=== PATIENT | female | born 1940 | race Caucasian/White ===

== ENCOUNTER → 2018-10-13 | Outpatient (CLI) | payer MEDICARE, OTHER ==
--- NOTE | 2018-10-13 11:25 | NM ---
EXAMINATION TYPE: NM stress lexiscan cardiolite DATE OF EXAM: 10/13/2018 COMPARISON: NONE HISTORY: TECHNIQUE: After the intravenous administration of 10 mCi Tc 99m Sestamibi - Cardiolite resting SPEC T images acquired 60 minutes post injection. The patient received 0.4mg Lexiscan, 25.4 mCi Tc 99m Sestamibi - Stress images obtained [address] injection FINDINGS: Review of stress and rest SPECT images demonstrates no distinct perfusion abnormality. Gated analysi s shows normal wall motion with an estimated left ventricular ejection fraction of 58 %. IMPRESSION: No scintigraphic evidence for reversible ischemia.
--- NOTE | 2018-10-13 12:48 | EST ---
EXERCISE STRESS DATE OF SERVICE: 10/13/2018 AGE: 78 SEX: Female HT: 5'7" WT: 230 PROTOCOL: Lexiscan Cardiolite STAGE: DURATION OF EXERCISE: HEART RATE REST: 63 BLOOD PRESSURE REST: 137/67 MAXIMUM HEART RATE ACHIEVED: 75 MAXIMUM BLOOD PRESSURE: 145/70 85% MPHR: 100% MPHR: METS: INDICATIONS: Chest pain. CLINICAL INFORMATION: Lexiscan Cardiolite study was performed. Patient was given Lexiscan injection over a period of 15 seconds. The peak heart rate of 75 was achieved. Maximum blood pressure of 145/70 mmHg was noted. Resting EKG shows normal sinus rhythm with normal VA interval and QRS duration and normal ST-T waves. No ST-segment depression suggestive of ischemia is noted. Occasional PVCs are noted. The results of the nuclear study will follow. STEFFANIE / RAHULN: [id number] /
== END | disposition home or self-care (01) ==
LOC: RADNMMAIN 07:52
PROVIDERS: ATTEND Family Medicine
DX: I10 Essential (primary) hypertension (principal); R00.1 Bradycardia, unspecified
CPT/HCPCS: 93017; 78452; A9500

== ENCOUNTER → 2020-03-29 | Outpatient (CLI) | payer MEDICARE ==
--- NOTE | 2020-03-29 17:00 | US ---
EXAMINATION TYPE: US venous doppler duplex LE BI DATE OF EXAM: 03/29/2020 4:11 PM COMPARISON: Left lower extremity venous ultrasound April 29, 2015 and right lower extremity venous u ltrasound February 10, 2015. CLINICAL HISTORY: I80.9 Phlebitis and thrombophlebitis of unspecified. Bilateral leg pain SIDE PERFORMED: Bilateral TECHNIQUE: The lower extremity deep venous system is examined utilizing real time linear array sonog justino with graded compression, doppler sonography and color-flow sonography. VESSELS IMAGED: External Iliac Vein (EIV) Common Femoral Vein Deep Femoral Vein Greater Saphenous Vein * Femoral Vein Popliteal Vein Small Saphenous Vein * Proximal Calf Veins (* superficial vessels) Right Leg: Negative for DVT Left Leg: Negative for DVT Results called to Shanna at Dr's office at time of exam Grayscale, color doppler, spectral doppler imaging performed of the deep veins of the bilateral lower extremities. There is normal flow, compressibility, vascular waveforms. IMPRESSION: No ultrasound evidence for acute DVT in either lower extremity.
== END | disposition home or self-care (01) ==
LOC: RADUSWWP 15:46
PROVIDERS: ATTEND Orthopaedic Surgery
DX: M25.561 Pain in right knee (principal); M17.0 Bilateral primary osteoarthritis of knee; I80.9 Phlebitis and thrombophlebitis of unspecified site
CPT/HCPCS: 93970

== ENCOUNTER 2021-11-17 05:31 | Observation (INO) | payer MEDICARE ==
[2021-11-17] MEDS ORDERED: NALOXONE 0.4 MG/ML 1 ML VIAL IV PRN ×2 (06:19→11:26)
[2021-11-17] MEDS: SODIUM CHLORIDE 0.9% 1,000 ML IV SCH (06:33)
[2021-11-17] MEDS: ACETAMINOPHEN TAB 325 MG TAB PO PRN ×2 (06:33→16:34)
[2021-11-17] MEDS ORDERED: VANCOMYCIN IV PER PHARMACY 1 EACH MISC MISCELLANE PRN ×2 (06:35→11:36)
--- NOTE | 2021-11-17 06:39 | ED ---
General Adult HPI - General Chief complaint: Fever Stated complaint: Abnormal Labs Time Seen by Provider: 11/17/21 06:10 Source: EMS Mode of arrival: EMS Limitations: no limitations - History of Present Illness Initial comments: This patient is an 81-year-old woman who is transferred here to have further evaluation and treatment of fever, generalized weakness, inability to walk. Patient states that she was in usual state of health until 10 AM yesterday. Around that time she started feeling generalized weakness and she was having some diffuse body aches. She then noticed she was having shaking chills. Patient resisted going to be seen for number hours and then went to [facility] in the early evening. Patient was seen there and had workup, without finding a definite source of infection and she was transferred here for further evaluation. -: hour(s) Consistency: constant Improves with: none Worsens with: none Associated Symptoms: headaches, malaise, weakness Treatments Prior to Arrival: other (Rocephin) - Related Data Home Medications Medication Instructions Recorded Confirmed Aspirin 81 mg PO DAILY 01/17/15 04/25/15 Atorvastatin [Lipitor] 10 mg PO HS 01/17/15 04/25/15 Lisinopril [Prinivil] 10 mg PO DAILY 01/17/15 04/25/15 metFORMIN HCL [Glucophage] 500 mg PO QAM 01/17/15 04/25/15 Acetaminophen Tab [Tylenol Tab] 500 mg PO Q6H PRN 04/19/15 04/25/15 Warfarin [Coumadin] 5 mg PO ONCE 04/25/15 04/25/15 Previous Rx's Medication Instructions Recorded HYDROcodone/APAP 5-325MG [[place] 1 - 2 each PO Q6HR PRN #90 tab 04/29/15 5-325] Warfarin [Coumadin] 2.5 mg PO DAILY #1 tab 04/29/15 Allergies Allergy/AdvReac Type Severity Reaction Status Date / Time No Known Allergies Allergy Verified 04/19/15 11:33 Review of Systems ROS Statement: Those systems with pertinent positive or pertinent negative responses have been documented in the HPI. ROS Other: All systems not noted in ROS Statement are negative. Constitutional: Reports: fever, chills, weakness ENT: Denies: ear pain Respiratory: Denies: cough, dyspnea Cardiovascular: Reports: edema. Denies: chest pain, palpitations, orthopnea, syncope Gastrointestinal: Denies: abdominal pain, vomiting, diarrhea Genitourinary: Denies: dysuria, hematuria Musculoskeletal: Reports: myalgia. Denies: back pain Skin: Denies: rash Neurological: Reports: headache. Denies: weakness, numbness Past Medical History Past Medical History: Diabetes Mellitus, GERD/Reflux, Hyperlipidemia, Hypertension, Osteoarthritis (OA) Additional Past Medical History / Comment(s): gallstones, urinary leakage, occ uses cane, edema left lower leg History of Any Multi-Drug Resistant Organisms: None Reported Past Surgical History: Section, Tubal Ligation Additional Past Surgical History / Comment(s): rt hip replacement 01/26/15 Past Anesthesia/Blood Transfusion Reactions: No Reported Reaction Past Psychological History: Anxiety Past Alcohol Use History: Rare Past Drug Use History: None Reported - Past Family History Father Family Medical History: Diabetes Mellitus General Exam General appearance: alert, in no apparent distress Head exam: Present: atraumatic, normocephalic Eye exam: Present: normal appearance. Absent: scleral icterus, conjunctival injection Neck exam: Present: normal inspection, full ROM. Absent: meningismus Respiratory exam: Present: normal lung sounds bilaterally. Absent: respiratory distress, wheezes, rales, rhonchi, stridor Cardiovascular Exam: Present: regular rate, normal rhythm, normal heart sounds. Absent: systolic murmur, diastolic murmur, rubs, gallop GI/Abdominal exam: Present: soft. Absent: distended, tenderness, guarding, rebound, rigid, mass Extremities exam: Present: normal inspection, normal capillary refill. Absent: pedal edema, calf tenderness Back exam: Present: normal inspection. Absent: CVA tenderness (R), CVA tenderness (L) Neurological exam: Present: alert, oriented X3. Absent: motor sensory deficit Skin exam: Present: warm, dry, intact, erythema (There is erythema, warmth and edema involving the left lower extremity, to a lesser degree trace of erythema to right lower extremity.) Course Vital Signs 11/17/21 11/17/21 05:38 06:09 Temperature 100.1 F H Pulse Rate 76 73 Respiratory 18 18 Rate Blood Pressure 143/96 153/59 O2 Sat by Pulse 94 L 94 L Oximetry Disposition Clinical Impression: Cellulitis Disposition: ADMITTED IP TO THIS HOSP Condition: Fair Referrals: Asif Aparicio DO [Primary Care Provider] - 1-2 days
[2021-11-17] MEDS ORDERED: VANCOMYCIN 1,750 MG in SODIUM CHLORIDE 0.9% 500 ML 500 ML IVPB ONE (07:15)
[2021-11-17 07:32] LABS: Albumin 3.6 g/dL (3.5-5.0); Calcium 8.8 mg/dL (8.4-10.2); Potassium 4.3 mmol/L (3.5-5.1); Total Protein 6.5 g/dL (6.3-8.2)
[2021-11-17 07:52] LABS: Basophils % (A) 0 %; Eosinophils % (A) 0 %; HCT 37.7 % (34.0-46.0); HGB 12.8 gm/dL (11.4-16.0); Lymphocytes % (A) 9 %; MCHC 33.9 g/dL (31.0-37.0); MCV 94.5 fL (80.0-100.0); Mean Platelet Volume 7.7; Monocytes # (A) 0.2 k/uL (0-1.0); Monocytes % (A) 2 %; Neutrophils # (A) 10.8 k/uL (1.3-7.7); Neutrophils % (A) 88 %; Platelet Count 202 k/uL (150-450); RBC 3.99 m/uL (3.80-5.40); RDW 13.4 % (11.5-15.5); WBC 12.2 k/uL (3.8-10.6)
[2021-11-17] MEDS ORDERED: HEPARIN SODIUM,PORCINE/PF 5,000 UNIT/0.5 ML SYRINGE SQ SCH (09:00)
[2021-11-17] MEDS: FAMOTIDINE 20 MG TAB PO SCH ×2 (09:25→21:22)
[2021-11-17 11:17] LABS: Glucose,Whole Blood 126 mg/dL (75-99)
[2021-11-17] MEDS ORDERED: MELATONIN 3 MG TABLET PO PRN (11:26)
[2021-11-17] MEDS ORDERED: HYDROmorphone 2 MG TAB PO PRN (11:26)
[2021-11-17] MEDS ORDERED: bisacodyL 5 MG TABLET.DR PO PRN (11:26)
[2021-11-17] MEDS ORDERED: ONDANSETRON 4 MG/2 ML VIAL IVP PRN (11:26)
[2021-11-17] MEDS ORDERED: MAGNESIUM HYDROXIDE 2,400 MG/10 ML CUP PO PRN (11:26)
[2021-11-17] MEDS ORDERED: HYDROcodone/APAP 5-325MG 1 EACH TAB PO PRN (11:26)
[2021-11-17] MEDS ORDERED: NON FORMULARY DRUG (Acetaminophen [Tylenol Arthritis] 650 MG Tablet) PO PRN (11:31)
[2021-11-17] MEDS ORDERED: LORATADINE 10 MG TAB PO PRN (11:31)
--- NOTE | 2021-11-17 12:33 | P.HPIM ---
History of Present Illness H&P Date: 11/17/21 Chief Complaint: Left lower extremity pain with inability to ambulate with fever 81-year-old male with past medical history significant for paroxysmal A. fib dyslipidemia hypertension and type 2 diabetes mellitus. Patient transferred here to have further evaluation and treatment of fever, generalized weakness, inability to walk. Patient states that she was in usual state of health until 10 AM yesterday. Around that time she started feeling generalized weakness and she was having some diffuse body aches. She then noticed she was having shaking chills. Patient resisted going to be seen for number hours and then went to [facility] in the early evening. Patient was seen there and had workup, without finding a definite source of infection and she was transferred here for further evaluation. Patient denied any chest pain denies any shortness of breath. She denies any nausea vomiting. Denies any abdominal pain. Denies any change in bowel movement. She denies any focal weakness or paresthesias. Review of Systems All 14 review of systems evaluated and all negative except for above. Past Medical History Past Medical History: Atrial Fibrillation, Diabetes Mellitus, GERD/Reflux, Hyperlipidemia, Hypertension, Osteoarthritis (OA) Additional Past Medical History / Comment(s): NIDDM type II, neuropathy bilateral legs/feet, recent kidney infection tx with antibiotic, UTIs, overactive bladder, arthritis in multiple joints, bilateral leg lymphedema, History of Any Multi-Drug Resistant Organisms: None Reported Past Surgical History: Section, Tubal Ligation Additional Past Surgical History / Comment(s): total L/R hip arthroplasites, bilateral cataract removals/lens implants. Past Anesthesia/Blood Transfusion Reactions: No Reported Reaction Smoking Status: Former smoker - Past Family History Mother Family Medical History: Unable to Obtain Additional Family Medical History / Comment(s): Mother left when pt was 3 yrs old. Father Family Medical History: Diabetes Mellitus Medications and Allergies Home Medications Medication Instructions Recorded Confirmed Type Atorvastatin [Lipitor] 10 mg PO HS 01/17/15 11/17/21 History metFORMIN HCL [Glucophage] 500 mg PO AC-BID 01/17/15 11/17/21 History Acetaminophen [Tylenol Arthritis] 650 mg PO Q8H PRN 11/17/21 11/17/21 History Ascorbic Acid [Vitamin C] 1,000 mg PO DAILY 11/17/21 11/17/21 History Cholecalciferol [Vitamin D3 (25 25 mcg PO DAILY 11/17/21 11/17/21 History Mcg = 1000 Iu)] FLUoxetine HCL [PROzac] 20 mg PO DAILY 11/17/21 11/17/21 History Loratadine [Claritin] 10 mg PO DAILY PRN 11/17/21 11/17/21 History Metoprolol Tartrate [Lopressor] 75 mg PO BID 11/17/21 11/17/21 History Multivit-Min/FA/Lycopen/Lutein 1 tab PO DAILY 11/17/21 11/17/21 History [Centrum Silver Tablet] Rivaroxaban [Xarelto] 20 mg PO W/SUPPER 11/17/21 11/17/21 History Turmeric Root Extract [Turmeric] 500 mg PO DAILY 11/17/21 11/17/21 History amLODIPine [Norvasc] 10 mg PO DAILY 11/17/21 11/17/21 History Allergies Allergy/AdvReac Type Severity Reaction Status Date / Time No Known Allergies Allergy Verified 04/19/15 11:33 Physical Exam Vitals: Vital Signs Temp Pulse Resp BP BP Pulse Ox 11/17/21 09:24 98.5 F 16 123/76 96 11/17/21 06:09 73 18 153/59 94 L 11/17/21 05:38 100.1 F H 76 18 143/96 94 L Intake and Output 11/16/21 11/17/21 11/17/21 22:59 06:59 14:59 Other: Weight 106.594 kg 106.594 kg General: non toxic, no distress, appears at stated age Derm: warm, dry Head: atraumatic, normocephalic, symmetric Eyes: EOMI, no lid lag, anicteric sclera Mouth: no lip lesion, mucus membranes moist Cardiovascular: S1S2 reg, no murmur, positive posterior tibial pulse bilateral, Lungs: CTA bilateral, no rhonchi, no rales , no accessory muscle use Abdominal: soft, nontender to palpation, no guarding, no appreciable organomegaly Ext: Left lower extremity swollen and red and tender and feel hot to palpation. Neuro: CN II-XI grossly intact, no focal neuro deficits Psych: Alert, oriented, appropriate affect Results CBC & Chem 7: 11/17/21 07:01 11/17/21 07:01 Labs: Abnormal Lab Results - Last 24 Hours (Table) 11/17/21 11/17/21 11/17/21 Range/Units 07:01 07:01 11:15 WBC 12.2 H (3.8-10.6) k/uL Neutrophils # 10.8 H (1.3-7.7) k/uL Sodium 133 L (137-145) mmol/L BUN 20 H (7-17) mg/dL Glucose 154 H (74-99) mg/dL POC Glucose (mg/dL) 126 H (75-99) mg/dL Thrombosis Risk Factor Assmnt - Choose All That Apply Any of the Below Risk Factors Present?: Yes Each Factor Represents 1 point: Obesity (BMI >25), Swollen legs (current) Other Risk Factors: Yes Each Risk Factor Represents 3 Points: Age 75 years or older Other congenital or acquired thrombophilia - If yes, enter type in comment: No Thrombosis Risk Factor Assessment Total Risk Factor Score: 5 Thrombosis Risk Factor Assessment Level: High Risk Assessment and Plan Assessment: Assessment and plan: #Left lower symmetry cellulitis with sepsis patient presented with fever and malaise and inability to ambulate -Start IV vancomycin -Infectious disease -Intravenous Fluids -CRP and sed rate -Check lactic acid level -Blood culture 2 -Venous Doppler to rule out DVT -PT/OT evaluation #Acute hyponatremia -Secondary to dehydration #History of proximal A. fib -Patient normal sinus rhythm -Resume metoprolol -Resume Xarelto #Type 2 diabetes mellitus -Hold metformin -Sliding scale scale insulin -Check A1c #Depression -Resume Prozac #Hypertension -Resume amlodipine and metoprolol #DVT prophylaxis resume Xarelto #Full code
[2021-11-17] MEDS: INSULIN ASPART (NovoLOG) 100 UNIT/ML VIAL SQ SCH ×3 (12:34→21:22)
--- NOTE | 2021-11-17 13:11 | US ---
EXAMINATION TYPE: US venous doppler duplex LE LT DATE OF EXAM: 11/17/2021 12:41 PM COMPARISON: US CLINICAL HISTORY: swelling. Cellulitis left lower leg with swelling SIDE PERFORMED: Left TECHNIQUE: The lower extremity deep venous system is examined utilizing real time linear array sonog justino with graded compression, doppler sonography and color-flow sonography. VESSELS IMAGED: Common Femoral Vein Deep Femoral Vein Greater Saphenous Vein * Femoral Vein Popliteal Vein Small Saphenous Vein * Proximal Calf Veins (* superficial vessels) There is normal flow, compressibility, vascular waveforms. Left Leg: Negative for DVT IMPRESSION: No evident deep venous thrombosis within the left lower extremity from the level of the k nee centrally
[2021-11-17 16:17] LABS: Glucose,Whole Blood 147 mg/dL (75-99)
[2021-11-17] MEDS: RIVAROXABAN 20 MG TAB PO SCH (16:28)
[2021-11-17] MEDS ORDERED: SODIUM CHLORIDE 0.9% 500 ML 500 ML IV ONE (17:32)
[2021-11-17 21:18] LABS: Glucose,Whole Blood 135 mg/dL (75-99)
[2021-11-17] MEDS: ATORVASTATIN 10 MG TAB PO SCH (21:22)
[2021-11-17] MEDS: METOPROLOL TARTRATE 25 MG TAB PO SCH (21:22)
--- NOTE | 2021-11-17 23:48 | P.CONS ---
History of Present Illness - Reason for Consult Consult date: 11/17/21 Left lower extremity cellulitis Requesting physician: Damian Griffin - Chief Complaint Left leg swelling and redness x few days - History of Present Illness Patient is 81-year-old female with a past medical history difficult for recurrent lower extremity cellulitis in this patient presenting to the hospital for evaluation of generalized weakness inability to walk symptoms started around 10 AM day before presentation the hospital patient was complaining of generalized body aches and having some shaking chills patient was noticed to have increasing swelling to the lower extremity and redness especially to the left leg patient been complaining of pain to the lower extremity more of a dull aching intensity is about 5-6 out of 10 no radiation patient currently not having open wound or any drainage with the symptom the patient was evaluated by ER physician on arrival to the ER the patient did have a fever of 100.1 F patient did have lactic acid of 3.7 white count of 12.2 with a left shift creatinine was 0.74 CRP 14.2 patient did have a lower extremity Doppler that was negative for DVT the patient was started on vancomycin has been admitted to the hospital infectious disease was consulted for further management of antibiotic therapy Review of Systems Positive point has been mentioned in the HPI rest of the systems are negative Past Medical History Past Medical History: Atrial Fibrillation, Diabetes Mellitus, GERD/Reflux, Hyperlipidemia, Hypertension, Osteoarthritis (OA) Additional Past Medical History / Comment(s): NIDDM type II, neuropathy b ilateral legs/feet, recent kidney infection tx with antibiotic, UTIs, overactive bladder, arthritis in multiple joints, bilateral leg lymphedema, History of Any Multi-Drug Resistant Organisms: None Reported Past Surgical History: Section, Tubal Ligation Additional Past Surgical History / Comment(s): total L/R hip arthroplasites, bilateral cataract removals/lens implants. Past Anesthesia/Blood Transfusion Reactions: No Reported Reaction Smoking Status: Former smoker - Past Family History Mother Family Medical History: Unable to Obtain Additional Family Medical History / Comment(s): Mother left when pt was 3 yrs old. Father Family Medical History: Diabetes Mellitus Medications and Allergies Home Medications Medication Instructions Recorded Confirmed Type Atorvastatin [Lipitor] 10 mg PO HS 01/17/15 11/17/21 History metFORMIN HCL [Glucophage] 500 mg PO AC-BID 01/17/15 11/17/21 History Acetaminophen [Tylenol Arthritis] 650 mg PO Q8H PRN 11/17/21 11/17/21 History Ascorbic Acid [Vitamin C] 1,000 mg PO DAILY 11/17/21 11/17/21 History Cholecalciferol [Vitamin D3 (25 25 mcg PO DAILY 11/17/21 11/17/21 History Mcg = 1000 Iu)] FLUoxetine HCL [PROzac] 20 mg PO DAILY 11/17/21 11/17/21 History Loratadine [Claritin] 10 mg PO DAILY PRN 11/17/21 11/17/21 History Metoprolol Tartrate [Lopressor] 75 mg PO BID 11/17/21 11/17/21 History Multivit-Min/FA/Lycopen/Lutein 1 tab PO DAILY 11/17/21 11/17/21 History [Centrum Silver Tablet] Rivaroxaban [Xarelto] 20 mg PO W/SUPPER 11/17/21 11/17/21 History Turmeric Root Extract [Turmeric] 500 mg PO DAILY 11/17/21 11/17/21 History amLODIPine [Norvasc] 10 mg PO DAILY 11/17/21 11/17/21 History Allergies Allergy/AdvReac Type Severity Reaction Status Date / Time No Known Allergies Allergy Verified 04/19/15 11:33 Physical Exam Vitals: Vital Signs Temp Pulse Resp BP BP Pulse Ox 11/17/21 09:24 98.5 F 16 123/76 96 11/17/21 06:09 73 18 153/59 94 L 11/17/21 05:38 100.1 F H 76 18 143/96 94 L Intake and Output 11/16/21 11/17/21 11/17/21 22:59 06:59 14:59 Other: Weight 106.594 kg 106.594 kg GENERAL DESCRIPTION: Elderly female up in the chair, no distress. No tachypnea or accessory muscle of respiration use. HEENT: Shows Pallor , no scleral icterus. Oral mucous membrane is dry. No pharyngeal erythema or thrush NECK: Trachea central, no thyromegaly. LUNGS: Unlabored breathing. Clear to auscultation anteriorly. No wheeze or crackle. HEART: S1, S2, regular rate and rhythm. No loud murmur ABDOMEN: Soft, no tenderness , guarding or rigidity, no organomegaly EXTREMITIES: Diffuse swelling redness left lower extremity which is warm to touch SKIN: No rash, no masses palpable. NEUROLOGICAL: The patient is awake, alert, oriented x3, mood and affect normal. Results CBC & Chem 7: 11/17/21 07:01 11/17/21 07:01 Labs: Abnormal Lab Results - Last 24 Hours (Table) 11/17/21 11/17/21 11/17/21 Range/Units 07:01 07:01 11:15 WBC 12.2 H (3.8-10.6) k/uL Neutrophils # 10.8 H (1.3-7.7) k/uL Sodium 133 L (137-145) mmol/L BUN 20 H (7-17) mg/dL Glucose 154 H (74-99) mg/dL POC Glucose (mg/dL) 126 H (75-99) mg/dL Assessment and Plan (1) Left leg cellulitis Current Visit: Yes Status: Acute Code(s): L03.116 - CELLULITIS OF LEFT LOWER LIMB SNOMED Code(s): 075364281 Plan: 1patient presented to hospital with generalized weakness fever with chills and this patient did have evidence of left lower extremity cellulitis with diffuse swelling and redness likely representing streptococcal cellulitis. 2discontinue vancomycin 3start the patient cefazolin 2 g every 8 hour. 4marked the area of the redness and Ernesto wrap to the leg from just above the toe to below the knee We will follow on clinical condition and cultures to further adjust medication if needed Thank you for this consultation will follow this patient along with you
[2021-11-18] MEDS ORDERED: VANCOMYCIN 1,750 MG in SODIUM CHLORIDE 0.9% 500 ML 500 ML IVPB SCH ×2
[2021-11-18 07:19] LABS: Glucose,Whole Blood 160 mg/dL (75-99)
[2021-11-18 07:28] LABS: African American GFR (CKD) >90 (>60 ml/min/1.73 sqM); Non-African American GFR(CKD) 80 (>60 ml/min/1.73 sqM)
[2021-11-18] MEDS: FAMOTIDINE 20 MG TAB PO SCH ×2 (08:19→21:29)
[2021-11-18] MEDS: METOPROLOL TARTRATE 25 MG TAB PO SCH ×2 (08:19→21:29)
[2021-11-18] MEDS: CHOLECALCIFEROL 25 MCG (1000 IU) TABLET PO SCH (08:19)
[2021-11-18] MEDS: FLUoxetine HCL 20 MG CAP PO SCH (08:19)
[2021-11-18] MEDS: MULTIVITAMINS, THERA 1 EACH TAB PO SCH (08:19)
[2021-11-18] MEDS: INSULIN ASPART (NovoLOG) 100 UNIT/ML VIAL SQ SCH ×4 (08:19→21:29)
[2021-11-18] MEDS: ASCORBIC ACID 500 MG TAB PO SCH (08:19)
[2021-11-18] MEDS: amLODIPine 10 MG TAB PO SCH (08:19)
[2021-11-18] MEDS: SODIUM CHLORIDE 0.9% 1,000 ML IV SCH (08:20)
[2021-11-18] MEDS ORDERED: NON FORMULARY DRUG (Turmeric Root Extract [Turmeric] 500 MG Capsule) PO SCH (09:00)
[2021-11-18 11:13] LABS: Anion Gap 5 mmol/L; Blood Urea Nitrogen 14 mg/dL (7-17); Calcium 8.3 mg/dL (8.4-10.2); Carbon Dioxide 21 mmol/L (22-30); Chloride 107 mmol/L (98-107); Glucose 138 mg/dL (74-99); Sodium 133 mmol/L (137-145)
[2021-11-18 11:53] LABS: Glucose,Whole Blood 161 mg/dL (75-99)
--- NOTE | 2021-11-18 16:16 | P.PN ---
Subjective Progress Note Date: 11/18/21 History of Present Illness H&P Date: 11/17/21 Chief Complaint: Left lower extremity pain with inability to ambulate with fever 81-year-old male with past medical history significant for paroxysmal A. fib dyslipidemia hypertension and type 2 diabetes mellitus. Patient transferred here to have further evaluation and treatment of fever, generalized weakness, inability to walk. Patient states that she was in usual state of health until 10 AM yesterday. Around that time she started feeling generalized weakness and she was having some diffuse body aches. She then noticed she was having shaking chills. Patient resisted going to be seen for number hours and then went to [facility] in the early evening. Patient was seen there and had workup, without finding a definite source of infection and she was transferred here for further evaluation. Patient denied any chest pain denies any shortness of breath. She denies any nausea vomiting. Denies any abdominal pain. Denies any change in bowel movement. She denies any focal weakness or paresthesias. Interval history: Patient was examined at the bedside. She is alert oriented 3. She denies any chest pain shortness of breath. The pain in the left lower extremity is improving. She still feels weak and tired. Objective - Vital Signs Vital signs: Vital Signs Temp 98.5 F 11/18/21 08:00 Pulse 79 11/18/21 08:00 Resp 16 11/18/21 08:00 BP 150/63 11/18/21 08:00 Pulse Ox 95 11/18/21 08:00 Intake & Output 11/17/21 11/18/21 11/18/21 18:59 06:59 18:59 Output Total 650 Balance -650 Weight 106.594 kg Output: Urine 650 - Exam General: non toxic, no distress, appears at stated age Derm: warm, dry Head: atraumatic, normocephalic, symmetric Eyes: EOMI, no lid lag, anicteric sclera Mouth: no lip lesion, mucus membranes moist Cardiovascular: S1S2 reg, no murmur, positive posterior tibial pulse bilateral, Lungs: CTA bilateral, no rhonchi, no rales , no accessory muscle use Abdominal: soft, nontender to palpation, no guarding, no appreciable organomegaly Ext: Left lower extremity swollen and red and tender and feel hot to palpation. Neuro: CN II-XI grossly intact, no focal neuro deficits Psych: Alert, oriented, appropriate affect - Labs CBC & Chem 7: 11/17/21 07:01 11/18/21 06:03 Labs: Abnormal Lab Results - Last 24 Hours (Table) 11/17/21 11/17/21 11/17/21 Range/Units 16:02 16:15 21:17 Sodium (137-145) mmol/L Carbon Dioxide (22-30) mmol/L Glucose (74-99) mg/dL POC Glucose (mg/dL) 147 H 135 H (75-99) mg/dL Hemoglobin A1c (0.0-6.0) % Plasma Lactic Acid Juarez 3.7 H* (0.7-2.0) mmol/L Calcium (8.4-10.2) mg/dL 11/18/21 11/18/21 11/18/21 Range/Units 06:03 06:03 07:17 Sodium 133 L (137-145) mmol/L Carbon Dioxide 21 L (22-30) mmol/L Glucose 138 H (74-99) mg/dL POC Glucose (mg/dL) 160 H (75-99) mg/dL Hemoglobin A1c 6.5 H (0.0-6.0) % Plasma Lactic Acid Juarez (0.7-2.0) mmol/L Calcium 8.3 L (8.4-10.2) mg/dL 11/18/21 Range/Units 11:52 Sodium (137-145) mmol/L Carbon Dioxide (22-30) mmol/L Glucose (74-99) mg/dL POC Glucose (mg/dL) 161 H (75-99) mg/dL Hemoglobin A1c (0.0-6.0) % Plasma Lactic Acid Juarez (0.7-2.0) mmol/L Calcium (8.4-10.2) mg/dL Microbiology - Last 24 Hours (Table) 11/17/21 13:03 Blood Culture - Preliminary Blood No Growth after 24 hours 11/17/21 06:45 Blood Culture - Preliminary Blood No Growth after 24 hours Assessment and Plan Assessment: Assessment and plan: #Left lower symmetry cellulitis with sepsis patient presented with fever and malaise and inability to ambulate -Start IV cefazolin per Infectious disease -Infectious disease -Intravenous Fluids -Elevated CRP elevated lactic acid -Blood culture 2 -Received fluid bolus and IV fluid -Venous Doppler negative for DVT -PT/OT evaluation #Lactic acidosis secondary to above -Improved with IV fluid #Acute hyponatremia -Secondary to dehydration #History of proximal A. fib -Patient normal sinus rhythm -Resume metoprolol -Resume Xarelto #Type 2 diabetes mellitus -Hold metformin due to severe lactic acidosis -Sliding scale scale insulin -A1c 6.5 #Depression -Resume Prozac #Hypertension -Resume amlodipine and metoprolol #DVT prophylaxis resume Xarelto #Full code
[2021-11-18 16:54] LABS: Glucose,Whole Blood 171 mg/dL (75-99)
[2021-11-18] MEDS: RIVAROXABAN 20 MG TAB PO SCH (17:26)
[2021-11-18 20:48] LABS: Glucose,Whole Blood 160 mg/dL (75-99)
[2021-11-18] MEDS: ATORVASTATIN 10 MG TAB PO SCH (21:29)
--- NOTE | 2021-11-18 22:43 | P.PN ---
Subjective Progress Note Date: 11/18/21 Principal diagnosis: Left lower extremity cellulitis Patient is 81-year-old female admitted to the hospital with left lower extremity swelling redness concerning for cellulitis. On today's evaluation that is 11/18 2021 the patient denies having any fever or any chills, the patient is feeling slightly better, left leg swelling and redness has slightly decreased currently with no open wound or any drainage no abdominal pain no diarrhea Objective - Vital Signs Vital signs: Vital Signs Temp 98.5 F 11/18/21 08:00 Pulse 79 11/18/21 08:00 Resp 16 11/18/21 08:00 BP 150/63 11/18/21 08:00 Pulse Ox 95 11/18/21 08:00 Intake & Output 11/17/21 11/18/21 11/18/21 18:59 06:59 18:59 Output Total 650 Balance -650 Weight 106.594 kg Output: Urine 650 - Exam GENERAL DESCRIPTION: An elderly female lying in bed in no distress RESPIRATORY SYSTEM: Unlabored breathing , decreased breath sounds at bases HEART: S1 S2 regular rate and rhythm , ABDOMEN: Soft , no tenderness EXTREMITIES: Left leg swelling and redness is slightly decreased - Labs CBC & Chem 7: 11/17/21 07:01 11/18/21 06:03 Labs: Abnormal Lab Results - Last 24 Hours (Table) 11/17/21 11/17/21 11/17/21 Range/Units 13:03 13:03 13:03 ESR 28 H (0-20) mm/hr Sodium (137-145) mmol/L Carbon Dioxide (22-30) mmol/L Glucose (74-99) mg/dL POC Glucose (mg/dL) (75-99) mg/dL Hemoglobin A1c (0.0-6.0) % Plasma Lactic Acid Juarez 3.3 H* (0.7-2.0) mmol/L Calcium (8.4-10.2) mg/dL C-Reactive Protein 14.2 H (<1.0) mg/dL 11/17/21 11/17/21 11/17/21 Range/Units 16:02 16:15 21:17 ESR (0-20) mm/hr Sodium (137-145) mmol/L Carbon Dioxide (22-30) mmol/L Glucose (74-99) mg/dL POC Glucose (mg/dL) 147 H 135 H (75-99) mg/dL Hemoglobin A1c (0.0-6.0) % Plasma Lactic Acid Juarez 3.7 H* (0.7-2.0) mmol/L Calcium (8.4-10.2) mg/dL C-Reactive Protein (<1.0) mg/dL 11/18/21 11/18/21 11/18/21 Range/Units 06:03 06:03 07:17 ESR (0-20) mm/hr Sodium 133 L (137-145) mmol/L Carbon Dioxide 21 L (22-30) mmol/L Glucose 138 H (74-99) mg/dL POC Glucose (mg/dL) 160 H (75-99) mg/dL Hemoglobin A1c 6.5 H (0.0-6.0) % Plasma Lactic Acid Juarez (0.7-2.0) mmol/L Calcium 8.3 L (8.4-10.2) mg/dL C-Reactive Protein (<1.0) mg/dL 11/18/21 Range/Units 11:52 ESR (0-20) mm/hr Sodium (137-145) mmol/L Carbon Dioxide (22-30) mmol/L Glucose (74-99) mg/dL POC Glucose (mg/dL) 161 H (75-99) mg/dL Hemoglobin A1c (0.0-6.0) % Plasma Lactic Acid Juarez (0.7-2.0) mmol/L Calcium (8.4-10.2) mg/dL C-Reactive Protein (<1.0) mg/dL Microbiology - Last 24 Hours (Table) 11/17/21 06:45 Blood Culture - Preliminary Blood No Growth after 24 hours Assessment and Plan (1) Left leg cellulitis Current Visit: Yes Status: Acute Code(s): L03.116 - CELLULITIS OF LEFT LOWER LIMB SNOMED Code(s): 098567850 Plan: 1patient presented to hospital with generalized weakness fever with chills and this patient did have evidence of left lower extremity cellulitis with diffuse swelling and redness likely representing streptococcal cellulitis. Patient did have minimal clinical improvement 2patient to continue with cefazolin 2 g every 8 hour. 3Ace wrap to the leg from just above the toe to below the knee Time with Patient: Less than 30
[2021-11-19 07:08] LABS: Glucose,Whole Blood 130 mg/dL (75-99)
[2021-11-19 07:30] LABS: African American GFR (CKD) >90 (>60 ml/min/1.73 sqM); Anion Gap 2 mmol/L; Blood Urea Nitrogen 13 mg/dL (7-17); Calcium 7.9 mg/dL (8.4-10.2); Carbon Dioxide 23 mmol/L (22-30); Chloride 109 mmol/L (98-107); Glucose 136 mg/dL (74-99); Non-African American GFR(CKD) 82 (>60 ml/min/1.73 sqM); Potassium 3.7 mmol/L (3.5-5.1); Sodium 134 mmol/L (137-145)
[2021-11-19] MEDS: INSULIN ASPART (NovoLOG) 100 UNIT/ML VIAL SQ SCH ×4 (08:02→20:41)
[2021-11-19] MEDS: CHOLECALCIFEROL 25 MCG (1000 IU) TABLET PO SCH (08:11)
[2021-11-19] MEDS: FAMOTIDINE 20 MG TAB PO SCH ×2 (08:11→19:56)
[2021-11-19] MEDS: FLUoxetine HCL 20 MG CAP PO SCH (08:11)
[2021-11-19] MEDS: MULTIVITAMINS, THERA 1 EACH TAB PO SCH (08:11)
[2021-11-19] MEDS: ASCORBIC ACID 500 MG TAB PO SCH (08:11)
[2021-11-19] MEDS: amLODIPine 10 MG TAB PO SCH (08:11)
[2021-11-19] MEDS: METOPROLOL TARTRATE 25 MG TAB PO SCH ×2 (08:11→19:56)
[2021-11-19 09:16] LABS: Basophils # (A) 0.02 X 10*3/uL (0.00-0.10); Basophils % (A) 0.2 %; Eosinophils # (A) 0.14 X 10*3/uL (0.04-0.35); Eosinophils % (A) 1.4 %; HCT 31.9 % (37.2-46.3); HGB 10.4 g/dL (12.0-15.0); Immature Grans, Automated 0.4 %; Lymphocytes # (A) 1.79 X 10*3/uL (0.90-5.00); Lymphocytes % (A) 18.4 %; MCH 30.5 pg (27.0-32.0); MCHC 32.6 g/dL (32.0-37.0); MCV 93.5 fL (80.0-97.0); Mean Platelet Volume 11.1 fL (9.5-12.2); Monocytes # (A) 0.47 X 10*3/uL (0.20-1.00); Monocytes % (A) 4.8 %; NRBC Per 100 WBC 0 /100 WBCS (0.0-0.0); Neutrophils # (A) 7.27 X 10*3/uL (1.80-7.70); Neutrophils % (A) 74.8 %; Platelet Count 158 X 10*3/uL (140-440); RBC 3.41 X 10*6/uL (4.10-5.20); RDW 13.4 % (11.5-14.5); WBC 9.73 X 10*3/uL (4.50-10.00)
[2021-11-19 11:54] LABS: Glucose,Whole Blood 173 mg/dL (75-99)
[2021-11-19] MEDS: ACETAMINOPHEN TAB 325 MG TAB PO PRN ×2 (12:00→19:56)
[2021-11-19 16:51] LABS: Glucose,Whole Blood 134 mg/dL (75-99)
[2021-11-19] MEDS: RIVAROXABAN 20 MG TAB PO SCH (17:07)
[2021-11-19] MEDS: ATORVASTATIN 10 MG TAB PO SCH (19:55)
[2021-11-19 20:21] LABS: Glucose,Whole Blood 300 mg/dL (75-99)
[2021-11-20 06:28] LABS: African American GFR (CKD) >90 (>60 ml/min/1.73 sqM); Anion Gap 4 mmol/L; Blood Urea Nitrogen 10 mg/dL (7-17); Calcium 8.2 mg/dL (8.4-10.2); Carbon Dioxide 21 mmol/L (22-30); Chloride 109 mmol/L (98-107); Glucose 137 mg/dL (74-99); Non-African American GFR(CKD) 86 (>60 ml/min/1.73 sqM); Potassium 3.8 mmol/L (3.5-5.1); Sodium 134 mmol/L (137-145)
[2021-11-20 06:51] LABS: Glucose,Whole Blood 159 mg/dL (75-99)
[2021-11-20 07:26] LABS: RBC 3.75
[2021-11-20 07:27] LABS: HGB 11.4
[2021-11-20 07:28] LABS: HCT 35.3; MCH 30.4; MCV 94.1
[2021-11-20 07:29] LABS: MCHC 32.3; RDW 13.6
[2021-11-20 07:30] LABS: Lymphocytes % (A) 14.1; Mean Platelet Volume 11.2; Monocytes % (A) 3.6; Neutrophils % (A) 80.3; Platelet Count 163
[2021-11-20 07:31] LABS: Basophils % (A) 0.3; Eosinophils % (A) 0.9; Lymphocytes # (A) 1.72
[2021-11-20 07:32] LABS: Basophils # (A) 0.04; Eosinophils # (A) 0.11; Monocytes # (A) 0.44; Neutrophils # (A) 9.79
[2021-11-20 07:33] LABS: Immature Grans, Automated 0.8
[2021-11-20 07:34] LABS: NRBC Per 100 WBC 0
[2021-11-20] MEDS: CHOLECALCIFEROL 25 MCG (1000 IU) TABLET PO SCH (07:47)
[2021-11-20] MEDS: METOPROLOL TARTRATE 25 MG TAB PO SCH ×2 (07:47→20:58)
[2021-11-20] MEDS: ASCORBIC ACID 500 MG TAB PO SCH (07:47)
[2021-11-20] MEDS: INSULIN ASPART (NovoLOG) 100 UNIT/ML VIAL SQ SCH ×4 (07:47→20:58)
[2021-11-20] MEDS: amLODIPine 10 MG TAB PO SCH (07:48)
[2021-11-20] MEDS: MULTIVITAMINS, THERA 1 EACH TAB PO SCH (07:48)
[2021-11-20] MEDS: FLUoxetine HCL 20 MG CAP PO SCH (07:48)
[2021-11-20] MEDS: FAMOTIDINE 20 MG TAB PO SCH ×2 (07:48→20:58)
[2021-11-20 09:43] LABS: Basophils # (A) 0.04 X 10*3/uL (0.00-0.10); Basophils % (A) 0.4 %; Eosinophils # (A) 0.22 X 10*3/uL (0.04-0.35); Eosinophils % (A) 2.4 %; HCT 31.5 % (37.2-46.3); HGB 10.1 g/dL (12.0-15.0); Immature Grans, Automated 0.4 %; Lymphocytes # (A) 1.76 X 10*3/uL (0.90-5.00); MCH 30.2 pg (27.0-32.0); MCHC 32.1 g/dL (32.0-37.0); MCV 94.3 fL (80.0-97.0); Monocytes # (A) 0.66 X 10*3/uL (0.20-1.00); Monocytes % (A) 7.1 %; NRBC Per 100 WBC 0 /100 WBCS (0.0-0.0); Neutrophils # (A) 6.54 X 10*3/uL (1.80-7.70); Neutrophils % (A) 70.7 %; Platelet Count 180 X 10*3/uL (140-440); RBC 3.34 X 10*6/uL (4.10-5.20); RDW 13.2 % (11.5-14.5); WBC 9.26 X 10*3/uL (4.50-10.00)
--- NOTE | 2021-11-20 10:47 | CDI ---
Documentation Clarification Form Date: 11/20/2021 10:36:26 AM From: Lia Lange CCS, CCDS Admit Date: 11/17/2021 11:26:00 AM Patient Name: Lisa Wilkinson Visit Number: [id number] Discharge Date: ATTENTION: The Clinical Documentation Specialists (CDI) and [facility] Coding Staff appreciate your assistance in clarifying documentation. Please respond to the clarification below the line at the bottom and electronically sign. The CDI & [facility] Coding staff will review the response and follow-up if needed. Please note: Queries are made part of the Legal Health Record. If you have any questions, please contact the author of this message via ITS. Dr. Damian Griffin: Left Leg Cellulitis and Diabetes Mellitus II are documented in the 11/17 History & Physical. Please clarify if there is a relationship between the diagnosis of DM II and Cellulitis. History/Risk Factors per the 11/17 H/P: Atrial Fibrillation, Diabetes Mellitus, GERD, Hyperlipidemia, Hypertension, Osteoarthritis, Neuropathy bilateral legs & feet, Kidney Infection, UTIs, Overactive Bladder, Arthritis in multiple joints, Bilateral leg lymphedema, Former smoker. Clinical Indicators: Presented to the ED on 11/17 via [facility] as a transfer from [facility] with fever, generalized weakness, inability to walk, diffuse body aches, headaches, malaise and shaking. Admit with Cellulitis 11/17 VS: T 100.1, P 76, R 18, BP 143/96, PO 94 RA, BMI: 36.8 11/17 LAB: WBC 12.2, Neut 10.8, Na 133, BUN 20, Glucose 154, Lactic Acid 3.3, 3.7, 2.0; CRP 14.2 11/17 RAD: Venous US left leg: negative for DVT. Treatment 11/17: Glucose monitoring, Telemetry, Insulin sliding scale, Wound Care, Blood cultures, IV Na Cl 1,000 mls @ 100 mls/hr q10Hr, IV Vancomycin 500 mls @ 167 mls/hr x1, Heparin sq 5,000 unit q12Hr, IV Cefazolin 50 mls @ 100 mls/hr q8Hr. Please clarify the relationship, if any, which is clinically appropriate for this patient: [ ] Cellulitis is due to Diabetes Mellitus II [ ] Cellulitis is not due to Diabetes Mellitus III [ ] Other explanation of clinical findings (please specify) [ ] Unable to determine (no explanation for clinical findings) (Template Last Revised: November 2020) Cellulitis is due to Diabetes Mellitus II MTDD
[2021-11-20 11:52] LABS: Glucose,Whole Blood 139 mg/dL (75-99)
--- NOTE | 2021-11-20 12:50 | P.PN ---
Subjective Progress Note Date: 11/19/21 Principal diagnosis: Left lower extremity cellulitis Patient is 81-year-old female admitted to the hospital with left lower extremity swelling redness concerning for cellulitis. On today's evaluation that is 2021 the patient remains to be afebrile, the patient left leg swelling and redness has slightly decreased, the patient denies abdominal pain no diarrhea Objective - Vital Signs Vital signs: Vital Signs Temp 99.0 F 11/19/21 08:00 Pulse 70 11/19/21 08:00 Resp 14 11/19/21 08:00 BP 143/73 11/19/21 08:00 Pulse Ox 95 11/19/21 08:00 Intake & Output 11/18/21 11/19/21 11/19/21 17:59 06:59 18:59 Output Total Balance Output: Urine Other: Voiding Method External Catheter # Bowel Movements - Exam GENERAL DESCRIPTION: An elderly female lying in bed in no distress RESPIRATORY SYSTEM: Unlabored breathing , decreased breath sounds at bases HEART: S1 S2 regular rate and rhythm , ABDOMEN: Soft , no tenderness EXTREMITIES: Left leg swelling and redness is slightly decreased - Labs CBC & Chem 7: 11/20/21 05:26 11/20/21 05:26 Labs: Abnormal Lab Results - Last 24 Hours (Table) 11/18/21 11/18/21 11/19/21 Range/Units 16:50 20:45 06:32 RBC (4.10-5.20) X 10*6/uL Hgb (12.0-15.0) g/dL Hct (37.2-46.3) % Sodium 134 L (137-145) mmol/L Chloride 109 H (98-107) mmol/L Glucose 136 H (74-99) mg/dL POC Glucose (mg/dL) 171 H 160 H (75-99) mg/dL Calcium 7.9 L (8.4-10.2) mg/dL 11/19/21 11/19/21 11/19/21 Range/Units 06:32 07:07 11:53 RBC 3.41 L (4.10-5.20) X 10*6/uL Hgb 10.4 L (12.0-15.0) g/dL Hct 31.9 L (37.2-46.3) % Sodium (137-145) mmol/L Chloride (98-107) mmol/L Glucose (74-99) mg/dL POC Glucose (mg/dL) 130 H 173 H (75-99) mg/dL Calcium (8.4-10.2) mg/dL Microbiology - Last 24 Hours (Table) 11/17/21 06:45 Blood Culture - Preliminary Blood No Growth after 48 hours 11/17/21 13:03 Blood Culture - Preliminary Blood No Growth after 24 hours Assessment and Plan (1) Left leg cellulitis Current Visit: Yes Status: Acute Code(s): L03.116 - CELLULITIS OF LEFT LOWER LIMB SNOMED Code(s): 976018461 Plan: 1patient presented to hospital with generalized weakness fever with chills and this patient did have evidence of left lower extremity cellulitis with diffuse swelling and redness likely representing streptococcal cellulitis. Patient did have minimal clinical improvement 2patient to continue with cefazolin 2 g every 8 hour for another 24-48 hour in view of the extent of cellulitis. 3Ace wrap to the leg from just above the toe to below the knee Time with Patient: Less than 30
--- NOTE | 2021-11-20 12:52 | P.PN ---
Subjective Progress Note Date: 11/20/21 Principal diagnosis: Left lower extremity cellulitis Patient is 81-year-old female admitted to the hospital with left lower extremity swelling redness concerning for cellulitis. On today's evaluation that is 11/20/2021 the patient denies any fever or any chills however the patient mentioned overall not feeling that good today, the patient left leg swelling and redness has slightly decreased, the patient denies abdominal pain no diarrhea Objective - Vital Signs Vital signs: Vital Signs Temp 99.0 F 11/20/21 07:25 Pulse 76 11/20/21 07:25 Resp 16 11/19/21 19:55 BP 162/81 11/20/21 07:25 Pulse Ox 94 L 11/20/21 07:25 Intake & Output 11/19/21 11/20/21 11/20/21 18:59 06:59 18:59 Output Total 1000 1450 Balance -1000 -1450 Output: Urine 1000 1450 Other: Voiding Method External Catheter External Catheter External Catheter # Bowel Movements 0 - Exam GENERAL DESCRIPTION: An elderly female lying in bed in no distress RESPIRATORY SYSTEM: Unlabored breathing , decreased breath sounds at bases HEART: S1 S2 regular rate and rhythm , ABDOMEN: Soft , no tenderness EXTREMITIES: Left leg swelling and redness is minimally decreased, no drainage - Labs CBC & Chem 7: 11/20/21 05:26 11/20/21 05:26 Labs: Abnormal Lab Results - Last 24 Hours (Table) 11/19/21 11/19/21 11/20/21 Range/Units 16:50 20:19 05:26 RBC (4.10-5.20) X 10*6/uL Hgb (12.0-15.0) g/dL Hct (37.2-46.3) % Sodium 134 L (137-145) mmol/L Chloride 109 H (98-107) mmol/L Carbon Dioxide 21 L (22-30) mmol/L Glucose 137 H (74-99) mg/dL POC Glucose (mg/dL) 134 H 300 H (75-99) mg/dL Calcium 8.2 L (8.4-10.2) mg/dL 11/20/21 11/20/21 11/20/21 Range/Units 05:26 06:50 11:51 RBC 3.34 L (4.10-5.20) X 10*6/uL Hgb 10.1 L (12.0-15.0) g/dL Hct 31.5 L (37.2-46.3) % Sodium (137-145) mmol/L Chloride (98-107) mmol/L Carbon Dioxide (22-30) mmol/L Glucose (74-99) mg/dL POC Glucose (mg/dL) 159 H 139 H (75-99) mg/dL Calcium (8.4-10.2) mg/dL Microbiology - Last 24 Hours (Table) 11/17/21 06:45 Blood Culture - Preliminary Blood No Growth after 72 hours 11/17/21 13:03 Blood Culture - Preliminary Blood No Growth after 48 hours Assessment and Plan (1) Left leg cellulitis Current Visit: Yes Status: Acute Code(s): L03.116 - CELLULITIS OF LEFT LOWER LIMB SNOMED Code(s): 703064422 Plan: 1patient presented to hospital with generalized weakness fever with chills and this patient did have evidence of left lower extremity cellulitis with diffuse swelling and redness likely representing streptococcal cellulitis. Patient did have minimal clinical improvement 2patient seems to have clinically improved with cefazolin 2 g every 8 hour, the patient is afebrile her white count has normalized blood culture negative plan is to finish therapy with oral Keflex 3Ace wrap to the leg from just above the toe to below the knee Time with Patient: Less than 30
--- NOTE | 2021-11-20 13:13 | P.PN ---
Subjective Progress Note Date: 11/20/21 History of Present Illness H&P Date: 11/17/21 Chief Complaint: Left lower extremity pain with inability to ambulate with fever 81-year-old male with past medical history significant for paroxysmal A. fib dyslipidemia hypertension and type 2 diabetes mellitus. Patient transferred here to have further evaluation and treatment of fever, generalized weakness, inability to walk. Patient states that she was in usual state of health until 10 AM yesterday. Around that time she started feeling generalized weakness and she was having some diffuse body aches. She then noticed she was having shaking chills. Patient resisted going to be seen for number hours and then went to [facility] in the early evening. Patient was seen there and had workup, without finding a definite source of infection and she was transferred here for further evaluation. Patient denied any chest pain denies any shortness of breath. She denies any nausea vomiting. Denies any abdominal pain. Denies any change in bowel movement. She denies any focal weakness or paresthesias. Interval history: Patient was examined at the bedside. She is alert oriented 3. She denies any chest pain shortness of breath. The pain in the left lower extremity is improving. She still feels weak and tired. Discussed with ID plan to switch patient to by mouth Keflex on discharge. Discussed with case measure patient will be discharged tomorrow to group home Objective - Vital Signs Vital signs: Vital Signs Temp 99.0 F 11/20/21 07:25 Pulse 76 11/20/21 07:25 Resp 16 11/19/21 19:55 BP 162/81 11/20/21 07:25 Pulse Ox 94 L 11/20/21 07:25 Intake & Output 11/19/21 11/20/21 11/20/21 18:59 06:59 18:59 Output Total 1000 1450 Balance -1000 -1450 Output: Urine 1000 1450 Other: Voiding Method External Catheter External Catheter External Catheter # Bowel Movements 0 - Exam General: non toxic, no distress, appears at stated age Derm: warm, dry Head: atraumatic, normocephalic, symmetric Eyes: EOMI, no lid lag, anicteric sclera Mouth: no lip lesion, mucus membranes moist Cardiovascular: S1S2 reg, no murmur, positive posterior tibial pulse bilateral, Lungs: CTA bilateral, no rhonchi, no rales , no accessory muscle use Abdominal: soft, nontender to palpation, no guarding, no appreciable organomegaly Ext: Left lower extremity swollen and red and tender and feel hot to palpation. Neuro: CN II-XI grossly intact, no focal neuro deficits Psych: Alert, oriented, appropriate affect - Labs CBC & Chem 7: 11/20/21 05:26 11/20/21 05:26 Labs: Abnormal Lab Results - Last 24 Hours (Table) 11/19/21 11/19/21 11/20/21 Range/Units 16:50 20:19 05:26 RBC (4.10-5.20) X 10*6/uL Hgb (12.0-15.0) g/dL Hct (37.2-46.3) % Sodium 134 L (137-145) mmol/L Chloride 109 H (98-107) mmol/L Carbon Dioxide 21 L (22-30) mmol/L Glucose 137 H (74-99) mg/dL POC Glucose (mg/dL) 134 H 300 H (75-99) mg/dL Calcium 8.2 L (8.4-10.2) mg/dL 11/20/21 11/20/21 11/20/21 Range/Units 05:26 06:50 11:51 RBC 3.34 L (4.10-5.20) X 10*6/uL Hgb 10.1 L (12.0-15.0) g/dL Hct 31.5 L (37.2-46.3) % Sodium (137-145) mmol/L Chloride (98-107) mmol/L Carbon Dioxide (22-30) mmol/L Glucose (74-99) mg/dL POC Glucose (mg/dL) 159 H 139 H (75-99) mg/dL Calcium (8.4-10.2) mg/dL Microbiology - Last 24 Hours (Table) 11/17/21 06:45 Blood Culture - Preliminary Blood No Growth after 72 hours 11/17/21 13:03 Blood Culture - Preliminary Blood No Growth after 48 hours Assessment and Plan Assessment: Assessment and plan: #Left lower symmetry cellulitis with sepsis patient presented with fever and malaise and inability to ambulate -Start IV cefazolin per Infectious disease. The Keflex and discharge -Infectious disease following -Elevated CRP elevated lactic acid -Blood culture 2 negative to date-- -Received fluid bolus and IV fluid -Venous Doppler negative for DVT -Lateral is wraps -PT/OT evaluation #Lactic acidosis secondary to sepsis and metformin -resolved with IV fluids #Acute hyponatremia -Secondary to dehydration #History of proximal A. fib -Patient normal sinus rhythm -Resume metoprolol -Resume Xarelto #Type 2 diabetes mellitus -Hold metformin due to severe lactic acidosis -Sliding scale scale insulin -A1c 6.5 #Depression -Resume Prozac #Hypertension -Resume amlodipine and metoprolol #DVT prophylaxis resume Xarelto #Full code Discharge [facility] home
[2021-11-20 16:26] LABS: Glucose,Whole Blood 221 mg/dL (75-99)
[2021-11-20] MEDS: RIVAROXABAN 20 MG TAB PO SCH (17:12)
[2021-11-20 20:46] LABS: Glucose,Whole Blood 154 mg/dL (75-99)
[2021-11-20] MEDS: ACETAMINOPHEN TAB 325 MG TAB PO PRN (20:58)
[2021-11-20] MEDS: ATORVASTATIN 10 MG TAB PO SCH (20:58)
[2021-11-21 07:10] LABS: Glucose,Whole Blood 137 mg/dL (75-99)
[2021-11-21] MEDS: ASCORBIC ACID 500 MG TAB PO SCH (09:24)
[2021-11-21] MEDS: FLUoxetine HCL 20 MG CAP PO SCH (09:24)
[2021-11-21] MEDS: MULTIVITAMINS, THERA 1 EACH TAB PO SCH (09:24)
[2021-11-21] MEDS: CHOLECALCIFEROL 25 MCG (1000 IU) TABLET PO SCH (09:24)
[2021-11-21] MEDS: amLODIPine 10 MG TAB PO SCH (09:24)
[2021-11-21] MEDS: METOPROLOL TARTRATE 25 MG TAB PO SCH ×2 (09:25→19:47)
[2021-11-21] MEDS: INSULIN ASPART (NovoLOG) 100 UNIT/ML VIAL SQ SCH ×3 (09:25→17:43)
[2021-11-21] MEDS: FAMOTIDINE 20 MG TAB PO SCH ×2 (09:26→19:47)
[2021-11-21 11:14] LABS: Glucose,Whole Blood 216 mg/dL (75-99)
[2021-11-21 16:19] LABS: Glucose,Whole Blood 215 mg/dL (75-99)
--- NOTE | 2021-11-21 16:58 | P.PN ---
Subjective Progress Note Date: 11/21/21 Principal diagnosis: Leg redness Patient feeling better today. Redness in the left leg going down. No fevers or chills. Objective - Vital Signs Vital signs: Vital Signs Temp 99.3 F 11/21/21 14:00 Pulse 64 11/21/21 14:00 Resp 18 11/21/21 14:00 BP 127/73 11/21/21 14:00 Pulse Ox 97 11/21/21 14:00 Intake & Output 11/20/21 11/21/21 11/21/21 18:59 06:59 18:59 Intake Total 50 50 Output Total 1200 2200 650 Balance -1200 -2150 -600 Intake: Intake, IV Titration 50 50 Amount ceFAZolin 2 gm In Sodium 50 50 Chloride 0.9% 50 ml @ 100 mls/hr IVPB Q8HR [facility] Rx# :[id number] Output: Urine 1200 2200 650 Other: Voiding Method External Catheter External Catheter External Catheter - Exam Constitutional: No acute distress, conversant, pleasant Eyes:Anicteric sclerae, moist conjunctiva, no lid-lag, PERRLA, ENMT: Oropharynx clear, no erythema, exudates Neck: Supple, FROM, no masses, or JVD, No carotid bruits, No thyromegaly Lungs: Clear to auscultation, Clear to percussion, Normal respiratory effort, no accessory muscle use Cardiovascular: Heart regular in rate and rhythm, No murmurs, gallops, or rubs, No peripheral edema Abdominal: Soft, Nontender, no guarding, rebound or rigidity, Normoactive bowel sounds, No hepatomegaly, No splenomegaly, No palpable mass Skin: Left leg redness extending up to the thigh seems to be clearing up. Extremities: No digital cyanosis, No clubbing, Pedal pulses intact and symmetrical, Radial pulses intact and symmetrical, No calf tenderness Psychiatric: Alert and oriented to person, place and time, appropriate affect, intact judgement Neuro: Muscles Strength 5/5 in all 4 extremities, Sensation to light touch grossly present throughout, Cranial nerves II-XII grossly intact, no focal sensory deficits - Labs CBC & Chem 7: 11/20/21 05:26 11/20/21 05:26 Labs: Abnormal Lab Results - Last 24 Hours (Table) 11/20/21 11/21/21 11/21/21 Range/Units 20:25 07:08 11:12 POC Glucose (mg/dL) 154 H 137 H 216 H (75-99) mg/dL 11/21/21 Range/Units 16:18 POC Glucose (mg/dL) 215 H (75-99) mg/dL Microbiology - Last 24 Hours (Table) 11/17/21 13:03 Blood Culture - Preliminary Blood No Growth after 96 hours 11/17/21 06:45 Blood Culture - Preliminary Blood No Growth after 96 hours Assessment and Plan Plan: #Left lower symmetry cellulitis with sepsis patient presented with fever and malaise and inability to ambulate -Continue IV cefazolin per Infectious disease, typical for streptococcus infection.. ID would discharge on Keflex -Infectious disease following -Blood culture 2 negative to date-- -Received fluid bolus and IV fluid -Venous Doppler negative for DVT -PT/OT evaluation #Lactic acidosis secondary to sepsis and metformin -resolved with IV fluids #Acute hyponatremia -Secondary to dehydration -Recheck in am #History of proximal A. fib -Patient normal sinus rhythm -Resume metoprolol -Resume Xarelto #Type 2 diabetes mellitus -Hold metformin due to severe lactic acidosis -Sliding scale scale insulin -A1c 6.5 #Depression -Resume Prozac #Hypertension -Resume amlodipine and metoprolol #DVT prophylaxis resume Xarelto #Full code
[2021-11-21] MEDS: RIVAROXABAN 20 MG TAB PO SCH (17:43)
[2021-11-21] MEDS: ATORVASTATIN 10 MG TAB PO SCH (19:47)
[2021-11-22] MEDS: INSULIN ASPART (NovoLOG) 100 UNIT/ML VIAL SQ SCH ×3 (03:08→11:59)
[2021-11-22 06:54] LABS: Glucose,Whole Blood 144 mg/dL (75-99)
[2021-11-22 07:06] VITALS: RESP 18
[2021-11-22 10:06] LABS: African American GFR (CKD) 94.8 (60.0-200.0); Anion Gap 10.7 mmol/L (10.00-18.00); BUN/Creat Ratio 13.57 Ratio (12.00-20.00); Blood Urea Nitrogen 9.5 mg/dL (9.0-27.0); Calcium 8.2 mg/dL (8.7-10.3); Carbon Dioxide 21.3 mmol/L (20.0-27.5); Non-African American GFR(CKD) 81.8 (60.0-200.0); Potassium 3.6 mmol/L (3.5-5.5)
[2021-11-22] MEDS: FAMOTIDINE 20 MG TAB PO SCH (10:36)
[2021-11-22] MEDS: amLODIPine 10 MG TAB PO SCH (10:36)
[2021-11-22] MEDS: CHOLECALCIFEROL 25 MCG (1000 IU) TABLET PO SCH (10:36)
[2021-11-22] MEDS: FLUoxetine HCL 20 MG CAP PO SCH (10:36)
[2021-11-22] MEDS: ASCORBIC ACID 500 MG TAB PO SCH (10:36)
[2021-11-22] MEDS: METOPROLOL TARTRATE 25 MG TAB PO SCH (10:36)
[2021-11-22] MEDS: MULTIVITAMINS, THERA 1 EACH TAB PO SCH (10:36)
[2021-11-22 11:16] LABS: Glucose,Whole Blood 173 mg/dL (75-99)
--- NOTE | 2021-11-22 11:37 | P.DS ---
Providers Date of admission: 11/17/21 11:26 Expected date of discharge: 11/22/21 Attending physician: Armani Kebede MD Consults: 11/17/21 11:29 Consult Physician Routine Consulting Provider: Yandy Lr Consult Reason/Comments: Left lower extremity cellulitis Do you want consulting provider notified?: Yes Primary care physician: Asif Prior Hospital Course: 81-year-old female with past medical history significant for paroxysmal A. fib dyslipidemia hypertension and type 2 diabetes mellitus presented to the ER due to fever, generalized weakness, inability to walk. Weakness was progressive over 1 week period, had some diffuse body aches and shaking chills. Patient denied any chest pain denies any shortness of breath. She denies any nausea vomiting. Denies any abdominal pain. Denies any change in bowel movement. She denies any focal weakness or paresthesias. Evaluation in the emergency department revealed skin erythema with tenderness in the left lower extremity consistent with cellulitis. Therefore patient was admitted for IV antibiotics treatment. She was initiated on IV cephalexin because of suspicion for streptococcal infection. She was seen by infectious disease. Blood cultures did not grow any organism. Labs showed some leukocytosis initially on admission up to 12,000 and that trended back to normal on discharge. Her symptoms resolved with treatment except for weakness. Was evaluated by PT who advised rehab. Patient will be discharged to rehab in a stable condition. She will be prescribed oral Keflex. Time for discharge 36 min Patient Condition at Discharge: Fair Plan - Discharge Summary Discharge Rx Participant: No New Discharge Prescriptions: New Cephalexin [Keflex] 500 mg PO Q6HR 5 Days #20 cap Continue metFORMIN HCL [Glucophage] 500 mg PO AC-BID Atorvastatin [Lipitor] 10 mg PO HS Acetaminophen [Tylenol Arthritis] 650 mg PO Q8H PRN PRN Reason: Pain FLUoxetine HCL [PROzac] 20 mg PO DAILY Rivaroxaban [Xarelto] 20 mg PO W/SUPPER Ascorbic Acid [Vitamin C] 1,000 mg PO DAILY Multivit-Min/FA/Lycopen/Lutein [Centrum Silver Tablet] 1 tab PO DAILY Turmeric Root Extract [Turmeric] 500 mg PO DAILY Loratadine [Claritin] 10 mg PO DAILY PRN PRN Reason: Allergy Symptoms Cholecalciferol [Vitamin D3 (25 Mcg = 1000 Iu)] 25 mcg PO DAILY amLODIPine [Norvasc] 10 mg PO DAILY Metoprolol Tartrate [Lopressor] 75 mg PO BID Discharge Medication List Atorvastatin [Lipitor] 10 mg PO HS 01/17/15 [History] metFORMIN HCL [Glucophage] 500 mg PO AC-BID 01/17/15 [History] Acetaminophen [Tylenol Arthritis] 650 mg PO Q8H PRN 11/17/21 [History] Ascorbic Acid [Vitamin C] 1,000 mg PO DAILY 11/17/21 [History] Cholecalciferol [Vitamin D3 (25 Mcg = 1000 Iu)] 25 mcg PO DAILY 11/17/21 [History] FLUoxetine HCL [PROzac] 20 mg PO DAILY 11/17/21 [History] Loratadine [Claritin] 10 mg PO DAILY PRN 11/17/21 [History] Metoprolol Tartrate [Lopressor] 75 mg PO BID 11/17/21 [History] Multivit-Min/FA/Lycopen/Lutein [Centrum Silver Tablet] 1 tab PO DAILY 11/17/21 [History] Rivaroxaban [Xarelto] 20 mg PO W/SUPPER 11/17/21 [History] Turmeric Root Extract [Turmeric] 500 mg PO DAILY 11/17/21 [History] amLODIPine [Norvasc] 10 mg PO DAILY 11/17/21 [History] Cephalexin [Keflex] 500 mg PO Q6HR 5 Days #20 cap 11/22/21 [Rx] Follow up Appointment(s)/Referral(s): Neetu Leal, [NON-STAFF] - As Needed Prior,DO Asif [Primary Care Provider] - 1-2 days Activity/Diet/Wound Care/Special Instructions: PATIENT WOULD LIKE INFLUENZA VACCINE PRIOR TO DISCHARGE.
[2021-11-22 12:23] LABS: Basophils # (A) 0.04 X 10*3/uL (0.00-0.10); Basophils % (A) 0.3 %; Eosinophils # (A) 0.26 X 10*3/uL (0.04-0.35); Eosinophils % (A) 2.2 %; HCT 31.2 % (37.2-46.3); Immature Grans, Automated 1.3 %; Lymphocytes # (A) 1.96 X 10*3/uL (0.90-5.00); Lymphocytes % (A) 16.6 %; MCH 30.2 pg (27.0-32.0); MCHC 32.1 g/dL (32.0-37.0); MCV 94.3 fL (80.0-97.0); Monocytes # (A) 0.77 X 10*3/uL (0.20-1.00); Monocytes % (A) 6.5 %; NRBC Per 100 WBC 0 /100 WBCS (0.0-0.0); Neutrophils % (A) 73.1 %; Platelet Count 233 X 10*3/uL (140-440); RBC 3.31 X 10*6/uL (4.10-5.20); RDW 13.1 % (11.5-14.5); WBC 11.78 X 10*3/uL (4.50-10.00)
--- NOTE | 2021-11-22 12:35 | CDI ---
Documentation Clarification Form Date: 11/22/2021 12:24:30 PM From: Lia Lange CCS, CCDS Admit Date: 11/17/2021 11:26:00 AM Patient Name: Lisa Wilkinson Visit Number: [id number] Discharge Date: ATTENTION: The Clinical Documentation Specialists (CDI) and [facility] Coding Staff appreciate your assistance in clarifying documentation. Please respond to the clarification below the line at the bottom and electronically sign. The CDI & [facility] Coding staff will review the response and follow-up if needed. Please note: Queries are made part of the Legal Health Record. If you have any questions, please contact the author of this message via ITS. Dr. Miguelina Evans: Left Lower Extremity Cellulitis with Sepsis is documented throughout the record including in the 11/17 H/P & subsequent Progress Notes on 11/18, 11/20 & 11/21. Sepsis is not documented in the 11/22 Discharge Summary. Clarification is requested. History/Risk Factors per the 11/17 H/P: Paroxysmal Atrial Fibrillation, Hyperlipidemia, Hypertension, IDDM II, Osteoarthritis, Neuropathy bilateral legs & feet, UTIs, Overactive Bladder, Bilateral leg lymphedema. Former smoker. Clinical Indicators: Presented to the ED on 11/17 via EMS with Fever, Generalized weakness, inability to walk, diffuse body aches, shaking. Patient went to [facility], no source of infection found, transferred to [facility] for evaluation. Admit with Cellulitis 11/17 VS: T 100.1, P 76, R 18, BP 143/96, PO 94 RA, BMI: 36.8 11/17 LAB: WBC 12.2, Neutrophils 10.8; ESR 28; Na 133, BUN 20, Glucose 154, Lactic Acid: 3.3, 3.7, 2.0; CRP 14.2 Treatment 11/17: Ernesto Wraps to bilateral legs, Blood glucose monitoring, Telemetry, Insulin sliding scale, Wound care daily, Infectious Disease Consult, Blood cultures, IV Na Cl 100 mls/hr q10H, IV Vancomycin 167 mls/hr x1 then q16H, Heparin sq q12H, po Dilaudid 1 mg q3H/prn, IV Cefazolin 100 mls/hr q8H, IV Na Cl 999 mla/hr q31M Please clarify the following: [ ] Sepsis confirmed, remains under treatment [ ] Sepsis confirmed, resolved [ ] Sepsis ruled out [ ] Other condition, please specify: [ ] Unable to determine (Template Last Revised: November 2020) Sepsis confirmed, resolved MTDD
[2021-11-22 14:28] VITALS: BP 121/69; PULSE 71; TEMP 97.7
--- NOTE | 2021-11-22 14:33 | P.PN ---
Subjective Progress Note Date: 11/21/21 Principal diagnosis: Left lower extremity cellulitis Patient is 81-year-old female admitted to the hospital with left lower extremity swelling redness concerning for cellulitis. On today's evaluation that is 11/21/2021 the patient remains to be afebrile, the patient left leg swelling and discomfort has slightly decreased in intensity, the patient denies chest pain shortness of breath or cough, no abdominal pain no diarrhea Objective - Vital Signs Vital signs: Vital Signs Temp 98.5 F 11/21/21 08:00 Pulse 75 11/21/21 08:00 Resp 16 11/21/21 08:00 BP 159/68 11/21/21 08:00 Pulse Ox 95 11/21/21 08:00 Intake & Output 11/20/21 11/21/21 11/21/21 18:59 06:59 18:59 Intake Total 50 Output Total 1200 2200 650 Balance -1200 -2150 -650 Intake: Intake, IV Titration 50 Amount ceFAZolin 2 gm In Sodium 50 Chloride 0.9% 50 ml @ 100 mls/hr IVPB Q8HR [facility] Rx# :[id number] Output: Urine 1200 2200 650 Other: Voiding Method External Catheter External Catheter - Exam GENERAL DESCRIPTION: An elderly female lying in bed in no distress RESPIRATORY SYSTEM: Unlabored breathing , decreased breath sounds at bases HEART: S1 S2 regular rate and rhythm , ABDOMEN: Soft , no tenderness EXTREMITIES: Left leg swelling and redness is minimally decreased, no drainage - Labs CBC & Chem 7: 11/22/21 03:26 11/22/21 03:26 Labs: Abnormal Lab Results - Last 24 Hours (Table) 11/20/21 11/20/21 11/21/21 Range/Units 16:25 20:25 07:08 POC Glucose (mg/dL) 221 H 154 H 137 H (75-99) mg/dL 11/21/21 Range/Units 11:12 POC Glucose (mg/dL) 216 H (75-99) mg/dL Microbiology - Last 24 Hours (Table) 11/17/21 06:45 Blood Culture - Preliminary Blood No Growth after 96 hours 11/17/21 13:03 Blood Culture - Preliminary Blood No Growth after 72 hours Assessment and Plan (1) Left leg cellulitis Current Visit: Yes Status: Acute Code(s): L03.116 - CELLULITIS OF LEFT LOWER LIMB SNOMED Code(s): 145542719 Plan: 1patient presented to hospital with generalized weakness fever with chills and this patient did have evidence of left lower extremity cellulitis with diffuse swelling and redness likely representing streptococcal cellulitis. Patient did have minimal clinical improvement 2patient seems to have clinically improved with cefazolin 2 g every 8 hour, which will be continued while inpatient and plan is to finish therapy with oral Keflex 3Ace wrap to the leg from just above the toe to below the knee to keep the swelling down Time with Patient: Less than 30
--- NOTE | 2021-11-22 14:34 | P.PN ---
Subjective Progress Note Date: 11/22/21 Principal diagnosis: Left lower extremity cellulitis Patient is 81-year-old female admitted to the hospital with left lower extremity swelling redness concerning for cellulitis. On today's evaluation that is 11/22/2021 the patient denies any fever or any chills, the patient left leg swelling has improved and the patient denies pain to the left lower extremity, the patient denies chest pain shortness of breath or cough, the patient denies abdominal pain no diarrhea Objective - Vital Signs Vital signs: Vital Signs Temp 97.7 F 11/22/21 13:58 Pulse 71 11/22/21 13:58 Resp 18 11/22/21 13:58 BP 121/69 11/22/21 13:58 Pulse Ox 95 11/22/21 13:58 Intake & Output 11/21/21 11/22/21 11/22/21 18:59 06:59 18:59 Intake Total 50 50 Output Total 650 Balance -600 50 Intake: Intake, IV Titration 50 50 Amount ceFAZolin 2 gm In Sodium 50 50 Chloride 0.9% 50 ml @ 100 mls/hr IVPB Q8HR [facility] Rx# :[id number] Output: Urine 650 Other: Voiding Method External Catheter External Catheter # Voids 2 - Exam GENERAL DESCRIPTION: An elderly female lying in bed in no distress RESPIRATORY SYSTEM: Unlabored breathing , decreased breath sounds at bases HEART: S1 S2 regular rate and rhythm , ABDOMEN: Soft , no tenderness EXTREMITIES: Left leg swelling and redness is improved, no drainage - Labs CBC & Chem 7: 11/22/21 03:26 11/22/21 03:26 Labs: Abnormal Lab Results - Last 24 Hours (Table) 11/21/21 11/22/21 11/22/21 Range/Units 16:18 03:26 03:26 WBC 11.78 H (4.50-10.00) X 10*3/uL RBC 3.31 L (4.10-5.20) X 10*6/uL Hgb 10.0 L (12.0-15.0) g/dL Hct 31.2 L (37.2-46.3) % Immature Gran # 0.15 H (0.00-0.04) X 10*3/uL Neutrophils # 8.60 H (1.80-7.70) X 10*3/uL Glucose 140 H (70-110) mg/dL POC Glucose (mg/dL) 215 H (75-99) mg/dL Calcium 8.2 L (8.7-10.3) mg/dL 11/22/21 11/22/21 Range/Units 06:52 11:15 WBC (4.50-10.00) X 10*3/uL RBC (4.10-5.20) X 10*6/uL Hgb (12.0-15.0) g/dL Hct (37.2-46.3) % Immature Gran # (0.00-0.04) X 10*3/uL Neutrophils # (1.80-7.70) X 10*3/uL Glucose (70-110) mg/dL POC Glucose (mg/dL) 144 H 173 H (75-99) mg/dL Calcium (8.7-10.3) mg/dL Microbiology - Last 24 Hours (Table) 11/17/21 06:45 Blood Culture - Preliminary Blood No Growth after 120 hours 11/17/21 13:03 Blood Culture - Preliminary Blood No Growth after 96 hours Assessment and Plan (1) Left leg cellulitis Current Visit: Yes Status: Acute Code(s): L03.116 - CELLULITIS OF LEFT LOWER LIMB SNOMED Code(s): 314613692 Plan: 1patient presented to hospital with generalized weakness fever with chills and this patient did have evidence of left lower extremity cellulitis with diffuse swelling and redness likely representing streptococcal cellulitis. Patient did have minimal clinical improvement 2patient seems to have clinically improved with cefazolin 2 g every 8 hour, pl an is to finish therapy with oral Keflex 500 mg 3 times a day for 7 days 3Ace wrap to the leg from just above the toe to below the knee to keep the swelling down Time with Patient: Less than 30
== END 2021-11-22 16:03 ==
LOC: EC 05:31 → 4SSUR 06:50 → OBSVTOIN 11:26 → INTOOBSV 11:26 → UNDODISIN 11-22 16:03
PROVIDERS: ADMIT Internal Medicine; ATTEND Internal Medicine
DX: A41.9 Sepsis, unspecified organism (principal); L03.116 Cellulitis of left lower limb; E87.1 Hypo-osmolality and hyponatremia; E87.2 Acidosis; E11.628 Type 2 diabetes mellitus with other skin complications; E11.40 Type 2 diabetes mellitus with diabetic neuropathy, unspecified; E78.5 Hyperlipidemia, unspecified; E86.0 Dehydration; F32.A Depression, unspecified; E66.9 Obesity, unspecified; Z68.36 Body mass index [BMI] 36.0-36.9, adult; F41.9 Anxiety disorder, unspecified; Z20.822 Contact with and (suspected) exposure to COVID-19; I10 Essential (primary) hypertension; I48.0 Paroxysmal atrial fibrillation; N32.81 Overactive bladder; K21.9 Gastro-esophageal reflux disease without esophagitis; M19.90 Unspecified osteoarthritis, unspecified site; Z79.01 Long term (current) use of anticoagulants; Z79.82 Long term (current) use of aspirin; Z79.84 Long term (current) use of oral hypoglycemic drugs; Z79.899 Other long term (current) drug therapy; Z87.440 Personal history of urinary (tract) infections; Z87.891 Personal history of nicotine dependence; Z96.641 Presence of right artificial hip joint; Z96.1 Presence of intraocular lens; Z71.9 Counseling, unspecified; Z83.3 Family history of diabetes mellitus
CPT/HCPCS: 96361 ×3; 96366 ×6; 96367; 96365; 96372; 99285; 97530 ×5; 97162; 97535 ×2; 97166; 80053; 80048 ×4; 85652; 83605; 85025 ×5; 86140; 87040; 83036; 87635; 93971; G0378 ×6; J3370; J0690 ×6; J1644